=== PATIENT | female | born 1985 | race American Indian/Alaskan Native ===

== ENCOUNTER 2020-07-16 15:58 | Emergency (ER) | payer SELFPAY ==
[2020-07-16] MEDS ORDERED: methylPREDNISolone Sod Succinate 125 MG/2 ML INJ ONE (16:04)
[2020-07-16] MEDS ORDERED: FAMOTIDINE 20 MG/2 ML INJ IV ONE ×2 (16:04→16:06)
[2020-07-16] MEDS ORDERED: EPINEPHrine/PF 1 MG/1 ML INJ ONE (16:05)
[2020-07-16] MEDS ORDERED: EPINEPHrine/PF 1 MG/1 ML INJ SUB-Q ONE (16:06)
[2020-07-16] MEDS ORDERED: methylPREDNISolone Sod Succinate 125 MG/2 ML INJ IV ONE (16:06)
[2020-07-16] MEDS ORDERED: diphenhydrAMINE 50 MG/ML VIAL ONE (16:06)
[2020-07-16] MEDS ORDERED: diphenhydrAMINE 50 MG/ML VIAL IV ONE (16:06)
--- NOTE | 2020-07-16 16:39 | Emergency Department Report ---
ED Allergic Reaction HPI - General Chief complaint: Allergic Reaction Stated complaint: ALLERGIC REACTION Source: patient Mode of arrival: Ambulatory Limitations: No Limitations - History of Present Illness Initial Comments: Patient is a 34-year-old female presents to the emergency department with complaint of tongue and lip swelling. Patient states that she ate [place] food around 1 PM. She noticed a swelling around 3 PM and felt like it was getting worse and presented to the emergency department around 4 PM. She also reports some chest tightness and difficulty in breathing. She states that she is on amlodipine for blood pressure but states she has not taken it recently. - Related Data Allergies Allergy/AdvReac Type Severity Reaction Status Date / Time No Known Allergies Allergy Unverified 07/16/20 15:59 ED Review of Systems ROS: Stated complaint: ALLERGIC REACTION Other details as noted in HPI Comment: Unobtainable due to pts medical conditions ED Past Medical Hx - Past Medical History Previous Medical History?: Yes - Surgical History Past Surgical History?: No - Social History Smoking Status: Former Smoker Substance Use Type: Alcohol ED Physical Exam - General Limitations: No Limitations General appearance: alert - Head Head exam: Present: atraumatic, normocephalic - Eye Eye exam: Present: normal appearance Pupils: Present: normal accommodation - Expanded ENT Exam Expanded Mouth exam: Present: drooling, muffled voice, other (Patient has swelling of the lips upper and lower bilaterally, there is some mild tongue swelling. She is able to speak. She appears to be breathing normally.) Throat exam: Positive: normal inspection, other (There does not appear to be any swelling of the posterior pharynx.) - Neck Neck exam: Present: normal inspection - Respiratory Respiratory exam: Present: normal lung sounds bilaterally - Cardiovascular Cardiovascular Exam: Present: regular rate, normal rhythm, normal heart sounds - GI/Abdominal GI/Abdominal exam: Present: soft. Absent: distended, tenderness - Rectal Rectal exam: Present: deferred - Extremities Exam Extremities exam: Present: normal inspection - Back Exam Back exam: Present: normal inspection - Neurological Exam Neurological exam: Present: alert, oriented X3 - Psychiatric Psychiatric exam: Present: normal affect - Skin Skin exam: Present: warm, dry, intact ED Course Vital Signs 07/16/20 07/16/20 07/16/20 16:00 16:08 16:17 Pulse Rate 112 H 103 H 96 H Respiratory 20 14 Rate Blood Pressure Blood Pressure 158/101 [Right] O2 Sat by Pulse 97 99 100 Oximetry 07/16/20 07/16/20 07/16/20 16:24 16:30 16:45 Pulse Rate 94 H 88 Respiratory 13 17 Rate Blood Pressure 154/92 154/92 Blood Pressure 156/99 [Right] O2 Sat by Pulse 99 100 Oximetry 07/16/20 07/16/20 07/16/20 17:01 17:15 17:30 Pulse Rate 88 89 94 H Respiratory 15 20 16 Rate Blood Pressure 148/79 154/92 157/80 Blood Pressure [Right] O2 Sat by Pulse 100 99 98 Oximetry 07/16/20 07/16/20 07/16/20 17:45 18:01 18:15 Pulse Rate 87 92 H 90 Respiratory 23 17 22 Rate Blood Pressure 157/80 127/77 127/77 Blood Pressure [Right] O2 Sat by Pulse 99 99 98 Oximetry 07/16/20 18:30 Pulse Rate 94 H Respiratory 14 Rate Blood Pressure 133/86 Blood Pressure [Right] O2 Sat by Pulse 98 Oximetry - Reevaluation(s) Reevaluation #1: 07/16/20 16:25 Patient's tongue and lip swelling appears to have improved. Continue to monitor closely. Reevaluation #2: 07/16/20 18:16 Patient's upper lip appears markedly removed improved however the lower lip is still has some edema and there still a small amount of tongue swelling. Patient speech sounds improved. She does still note some tingling in her tongue. Labs are notable for an elevated white blood cell count. This could be secondary to her stress response as well as the dose of steroids. ED Medical Decision Making - Lab Data Result diagrams: 07/16/20 17:30 07/16/20 17:30 - Medical Decision Making 34-year-old female with history of hypertension presents to the emergency de partment with complaint of lip and tongue swelling. Patient had [place] food at 1 PM. She is also on on amlodipine but has not taken that recently. Differential includes angioedema, allergic reaction, anaphylaxis. Will give epi, IV Solu-Medrol, Benadryl, Pepcid and continue to monitor her airway closely. Patient likely to be admitted for observation. Critical care attestation.: If time is entered above; I have spent that time in minutes in the direct care of this critically ill patient, excluding procedure time. ED Disposition Clinical Impression: Angioedema Disposition: [id number] OP ADMIT IP TO THIS HOSP Is pt being admited?: Yes Does the pt Need Aspirin: Yes Condition: Stable Referrals: PRIMARY CARE, [Primary Care Provider] - 3-5 Days
[2020-07-16 17:46] LABS: Basophils # (Auto) 0.1 K/mm3 (0.0-0.1); Basophils % (Auto) 0.5 % (0.0-1.8); Eosinophils # (Auto) 0.1 K/mm3 (0.0-0.4); Eosinophils % (Auto) 0.7 % (0.0-4.3); Hematocrit 40.9 % (30.3-42.9); Hemoglobin 13.7 gm/dl (10.1-14.3); Lymphocytes # (Auto) 3.7 K/mm3 (1.2-5.4); Lymphocytes % (Auto) 21.9 % (13.4-35.0); Mean Corpuscular HGB Conc 34 % (30-34); Mean Corpuscular Volume 91 fl (79-97); Monocytes # (Auto) 0.9 K/mm3 (0.0-0.8); Monocytes % (Auto) 5.3 % (0.0-7.3); Platelet Count 328 K/mm3 (140-440)
[2020-07-16 18:06] LABS: Blood Urea Nitrogen 14 mg/dL (7-17); Hemolysis Index 2
[2020-07-16 18:45] LABS: BUN/Creatinine Ratio 20
--- NOTE | 2020-07-16 18:57 | XRay Report ---
CHEST PA AND LATERAL VIEWS INDICATION: MAIN. COMPARISON: None FINDINGS: Support devices: None Heart: Normal Lungs/Pleura: No acute pulmonary or pleural findings. IMPRESSION: 1. No active disease. Signer Name: Thuan Felix MD Signed: 07/16/2020 6:53 PM Workstation Name: [id number]
--- NOTE | 2020-07-16 23:25 | Event Note ---
Date: 07/16/20 Patient was evaluated for angioedema Tongue and lips were normal. Patient had allergy to shellfish. Patient counseled about avoiding shrimp and crab and other seafood. Also to avoid lisinopril and RADHA inhibitor's. Patient is Discharge diagnosis angioedema Prednisone 10 mg daily for 7 days
[2020-07-16 23:35] VITALS: BP 136/79
== END 2020-07-16 23:54 | disposition admitted as inpatient to this hospital (09) ==
LOC: ED 15:58
DX: T78.3XXA Angioneurotic edema, initial encounter (principal); Z87.891 Personal history of nicotine dependence
CPT/HCPCS: 36415; 71046; 80048; 84484; 84703; 85025; 96372; 96374; 96375; 99284; J0171; J1200; J2930; 93005